=== PATIENT | male | born 1940 | race Two or more races ===

== ENCOUNTER → 2020-01-13 | Emergency (ER) | payer MEDICARE, OTHER ==
[~2020-01-13] VITALS: Ht 167.6 cm; Wt 71.7 kg
[2020-01-13 14:00] VITALS: BP 160/76
== END | disposition home or self-care (01) ==
LOC: EDBD 12:58 → ER 12:58
DX: S16.1XXA Strain of muscle, fascia and tendon at neck level, initial encounter (principal); S40.012A Contusion of left shoulder, initial encounter; S09.8XXA Other specified injuries of head, initial encounter; J44.9 Chronic obstructive pulmonary disease, unspecified; Z87.891 Personal history of nicotine dependence; W18.39XA Other fall on same level, initial encounter; Y93.89 Activity, other specified; Y92.89 Other specified places as the place of occurrence of the external cause; Y99.8 Other external cause status
CPT/HCPCS: 70450; 72125; 73030